=== PATIENT | female | born 1995 | race Caucasian/White ===

== ENCOUNTER 2024-08-10 16:11 | Outpatient (CLI) | payer OTHER, SELFPAY ==
[2024-08-10 17:03] LABS: Hematocrit 33.1 % (37.0-47.0); Hemoglobin 11.5 g/dL (12.0-15.0); Mean Corpuscular HGB Conc 34.7 g/dl (32-36); Mean Corpuscular Hemoglobin 32.3 pg (26-34); Mean Platelet Volume 10.3 fl (7.4-10.4); Platelet Count Result 232 k/mm3 (150-375); Red Blood Count 3.56 M/mm3 (4.2-5.4); Red Cell Distribution Width 12.3 % (11.5-14.5); White Blood Count 8.7 K/mm3 (4.5-10.0)
[2024-08-10 17:53] LABS: HIV 1/2 Ab P24 Ag Result Negative (Negative)
[2024-08-10 18:00] LABS: Hepatitis B Surface Antigen Negative (Negative); Rubella IgG Antibody 58.2 IU/ML
[2024-08-11 15:48] LABS: CMV IgG Antibody <0.60 U/mL
[2024-08-12 11:58] LABS: RPR Screen NON-REACTIVE (NON-REACTIVE)
== END 2024-08-10 16:12 | disposition home or self-care (01) ==
LOC: ANHLAB 16:13
PROVIDERS: Visit Provider Student in an Organized Health Care Education/Training Program
DX: N91.2 Amenorrhea, unspecified (principal)
CPT/HCPCS: 36415; 84702; 85027; 86592; 86644; 86703; 86747; 86762; 86787; 86850; 86900; 86901; 87086; 87340; G0432

== ENCOUNTER 2024-12-23 10:05 | Outpatient (CLI) | payer OTHER, SELFPAY ==
[2024-12-23 11:39] LABS: Hematocrit 33.6 % (37.0-47.0); Hemoglobin 11.3 g/dL (12.0-15.0); Immature Granulocyte Percent A 2.7 % (0-0.5); Lymphocytes Absolute Auto 1.54 K/mm3 (0.9-3.2); Mean Corpuscular HGB Conc 33.6 g/dl (32-36); Mean Corpuscular Hemoglobin 32.4 pg (26-34); Mean Corpuscular Volume 96.3 fl (80-100); Nucleated Red Blood Cells Absolute Auto 0.000 K/mm3 (0.0-0.012); Nucleated Red Blood Cells Perc 0.0 % (0.0-0.2); Platelet Count Result 215 k/mm3 (150-375); Red Blood Count 3.49 M/mm3 (4.2-5.4); White Blood Count 12.0 K/mm3 (4.5-10.0)
[2024-12-23 12:06] LABS: Glucose 1 Hour PP 50gm Dose 65 mg/dL
[2024-12-23 12:47] LABS: HIV 1/2 Ab P24 Ag Result Negative (Negative)
[2024-12-23 13:04] LABS: Syphilis IgG/IgM Antibody Non-Reactive (Nonreactive)
== END 2024-12-23 10:06 | disposition home or self-care (01) ==
PROVIDERS: Visit Provider Obstetrics & Gynecology
DX: Z34.90 Encounter for supervision of normal pregnancy, unspecified, unspecified trimester (principal); Z3A.00 Weeks of gestation of pregnancy not specified
CPT/HCPCS: 36415; 82947; 85025; 86593; 86703; G0432

== ENCOUNTER 2025-01-22 11:18 | Emergency (ER) | payer OTHER, SELFPAY ==
[2025-01-22] VITALS (19 sets, daily range): BP systolic 102–139; BP diastolic 56–85; PULSE 73–89; RESP 12–22; TEMP 36.7; O2SAT 98–100
--- NOTE | 2025-01-22 12:54 | ED_ITS ---
HPI - General Adult General Chief complaint: Shortness of Breath/Dyspnea Stated complaint: SOB Time Seen by Provider: 01/22/25 12:05 History of Present Illness HPI narrative: 29-year-old female that is 34 weeks presents to the emergency department for evaluation for possible panic attacks. Patient denies any anxiety but states he did have some lightheadedness, dizziness, rapid heart rate while resting. Patient states that happened yesterday and happened again today. Patient does report 2 episodes of diarrhea. Patient states she has been drinking fluids but is unsure she has been drinking enough. Patient denies any current abdominal pain, she did have some left lower quadrant cramping and route but denies any current contractions. Patient denies any vaginal bleeding vaginal discharge. Patient denies any falls or injuries. Patient denies any other significant past medical history. As calm appearing at time of evaluation. Related Data Home Medications ?Medication ?Instructions ?Recorded ?Confirmed ?Last Taken ?Type vits no.126-ferrous fum tablet PO 07/20/24 01/12/25 Unknown History 28 mg iron-folic acid 800 mcg tablet (Classic ) Allergies Allergy/AdvReac Type Severity Reaction Status Date / Time No Known Allergies Allergy Verified 01/22/25 11:19 Review of Systems 2 Review of Systems: All systems reviewed & are unremarkable except as noted in HPI and below PMFSH Past Medical History Medical History Surgical History Surgical History H/O knee surgery Family History Family History Grandparent Breast cancer Stomach cancer Cancer of kidney Hypertension Social History Social History Smoking status: Never smoker Alcohol intake: never Substance use: never Substance use type: does not use Current Housing: Decline to Answer Concerned About Future Housing: Decline to Answer Difficulty Paying Gas/Electric Bills: Decline to Answer Difficulty Paying for Meds: Decline to Answer Currently Unemployed: Decline to Answer Education: Decline to Answer Difficulty w/ Childcare or Family Care: Decline to Answer Living arrangements: with family Occupation/Education: occupation Additional occupation/education comments: [employer] Gender identity (if verbalized by the patient): Female Sexual Orientation (if Verbalized by the Patient): Straight or Heterosexual Exam 2 Narrative: APPEARANCE: Well appearing, no pain, no distress, well-nourished. HEAD: normocephalic, atraumatic. EYES: PERRLA/EOMI, conjunctivae clear. NOSE: Normal no drainage EARS:TMS clear with good light reflex. THROAT: Pharynx clear, no exudate. NECK: Supple. No adenopathy, no masses. RESPIRATORY: Airway patent, respirations nonlabored. Clear to auscultation bilaterally, no rales, rhonchi, wheezing. CARDIOVASCULAR: Regular rate and rhythm without murmurs rubs or gallops. ABDOMINAL: Gravid abdomen MUSCULOSKELETAL: Moves all extremities. Strength/ROM intact, No edema, No calf tenderness. NEURO: Alert. Cranial nerves II through XII intact. Good gait. Good coordination SKIN: Warm, dry. Normal Color Course Vital Signs Vital signs: Vital Signs Pulse Rate 89 01/22/25 11:27 Respiratory Rate 14 01/22/25 11:27 Blood Pressure 123/80 01/22/25 11:27 Pulse Oximetry 100 01/22/25 11:27 Temperature 98.1 F 01/22/25 11:36 Pulse Rate 77 01/22/25 14:32 Respiratory Rate 12 01/22/25 14:32 Blood Pressure 113/61 01/22/25 14:31 Pulse Oximetry 98 01/22/25 14:32 Oxygen Delivery Room Air 01/22/25 11:40 Medical Decision Making [facility] Narrative Medical decision making narrative: 29-year-old female presenting to the emergency department for evaluation for lightheaded dizziness. Patient is currently afebrile but does have a leukocytosis of 12.4 which is normal for . Hemoglobin of 10.7. No acute abnormalities on her CMP was normal kidney function. No evidence of urinary tract infection. Patient was treated with a L of lactated Ringer's and does feel improved. Monitoring was performed by [facility] Gyne nursing and tracing is within normal limits. EKG shows normal sinus rhythm. Patient was not orthostatic positive. Patient family were updated the results of workup patient was encouraged to drink plenty of fluid. All questions concerns were addressed patient was well- appearing at time of discharge. Differential Diagnosis Differential Diagnosis: Dehydration, vertigo, electrolyte abnormality, panic attack, anxiety, heart palpitation Vital Signs Vital Signs: Vital Signs Pulse Rate 89 01/22/25 11:27 Respiratory Rate 14 01/22/25 11:27 Blood Pressure 123/80 01/22/25 11:27 Pulse Oximetry 100 01/22/25 11:27 Temperature 98.1 F 01/22/25 11:36 Pulse Rate 77 01/22/25 14:32 Respiratory Rate 12 01/22/25 14:32 Blood Pressure 113/61 01/22/25 14:31 Pulse Oximetry 98 01/22/25 14:32 Oxygen Delivery Room Air 01/22/25 11:40 Lab Data 01/22/25 12:47 01/22/25 12:47 Labs: Lab Results 01/22/25 Range/Units 12:47 WBC 12.4 H (4.5-10.0) K/mm3 RBC 3.24 L (4.2-5.4) M/mm3 Hgb 10.6 L (12.0-15.0) g/dL Hct 31.4 L (37.0-47.0) % MCV 96.9 (80-100) fl MCH 32.7 (26-34) pg MCHC 33.8 (32-36) g/dl RDW 13.0 (11.5-14.5) % Plt Count 169 (150-375) k/mm3 MPV 10.3 (7.4-10.4) fl Immature Gran % (Auto) 4.5 H (0-0.5) % Neut % (Auto) 76.2 H (45.5-73.1) % Lymph % (Auto) 13.4 L (18.3-44.2) % [place] % (Auto) 4.4 (2.6-8.5) % Eos % (Auto) 1.1 (0-4.4) % Baso % (Auto) 0.4 (0.2-1.2) % Lymph # (Auto) 1.65 (0.9-3.2) K/mm3 [place] # (Auto) 0.5 (0.1-0.6) K/mm3 Eos # (Auto) 0.1 (0-0.3) K/mm3 Baso # (Auto) 0.1 (0.0-0.1) K/mm3 Abs Immat Gran (auto) 0.56 H (0.00-0.031) K/mm3 Absolute Neuts (auto) 9.4 H (1.3-6.7) K/mm3 Absolute Nucleated RBC 0.000 (0.0-0.012) K/mm3 Nucleated RBC % 0.0 (0.0-0.2) % Sodium 136 L (137-145) mmol/L Potassium 3.7 (3.4-5.0) mmol/L Chloride 109 H (98-107) mmol/L Carbon Dioxide 23 (22-30) mmol/L Anion Gap 4 (4-12) mmol/L BUN 4 L (7-17) mg/dL Creatinine 0.56 L (0.7-1.0) mg/dL Estim Creat Clear Calc 123 ml/min Estimated GFR > 60 (59 - ) Glucose 79 (65-110) mg/dL Calcium 8.8 (8.4-10.2) mg/dL Total Bilirubin 0.3 (0.2-1.3) mg/dL AST 25 (14-36) U/L ALT 17 (6-35) U/L Alkaline Phosphatase 91 (38-126) U/L Total Protein 6.3 (6.3-8.2) g/dL Albumin 3.4 L (3.5-5.1) g/dL Urine Color Yellow (Yellow) Urine Appearance Clear (Clear) Urine pH 7.0 (5.0-9.0) Ur Specific [place] 1.005 (1.001-1.035) Urine Protein Negative (Negative) mg/dL Urine Glucose (UA) Negative (Negative) mg/dL Urine Ketones Negative (Negative) mg/dL Ur Blood (Man) Negative (Negative) Urine Nitrate Negative (Negative) Urine Bilirubin Negative (Negative) Urine Urobilinogen 0.2 (<2.0) mg/dL Leukocyte Esterase Rfl Negative (Negative) MARIA DOLORES/UL Discharge Plan Discharge Clinical Impression: Dizziness, Light-headed, Heart palpitations Patient Disposition: Home Condition: Stable Instructions: Antibiotic Form, Dehydration (DC) Additional Instructions: Drink plenty of fluids. Continue to have close follow-up with OB [facility]. If you have any worsening symptoms then please call or return to the emergency department. Patient Language: Bulgarian Prescriptions: No Action Classic 28 mg iron- 800 mcg tablet PO Follow-up/Referrals: PHYSICIAN,CARTOGRAPHY SUPERVISOR [Primary Care Provider] -
[2025-01-22 12:59] LABS: Hematocrit 31.4 % (37.0-47.0); Hemoglobin 10.6 g/dL (12.0-15.0); Immature Granulocyte Percent A 4.5 % (0-0.5); Lymphocytes Absolute Auto 1.65 K/mm3 (0.9-3.2); Mean Corpuscular HGB Conc 33.8 g/dl (32-36); Mean Corpuscular Hemoglobin 32.7 pg (26-34); Mean Corpuscular Volume 96.9 fl (80-100); Nucleated Red Blood Cells Absolute Auto 0.000 K/mm3 (0.0-0.012); Nucleated Red Blood Cells Perc 0.0 % (0.0-0.2); Platelet Count Result 169 k/mm3 (150-375); Red Blood Count 3.24 M/mm3 (4.2-5.4); White Blood Count 12.4 K/mm3 (4.5-10.0)
[2025-01-22 13:00] LABS: Add Urine Microscopic? NO; Appearance Urine Clear (Clear); Glucose Urine UA Negative (Negative); Leukocyte Esterase Ur Negative LEU/UL (Negative); Nitrate Urine Negative (Negative); Specific Grav Ur 1.005 (1.001-1.035)
[2025-01-22 13:20] LABS: Alanine Aminotransferase 17 U/L (6-35); Albumin Level 3.4 g/dL (3.5-5.1); Alkaline Phosphatase 91 U/L (38-126); Anion Gap 4 mmol/L (4-12); Aspartate Amino Transferase 25 U/L (14-36); Bilirubin,Total 0.3 mg/dL (0.2-1.3); Blood Urea Nitrogen 4 mg/dL (7-17); Calcium 8.8 mg/dL (8.4-10.2); Carbon Dioxide 23 mmol/L (22-30); Chloride 109 mmol/L (98-107); Estimated CRCL calculation 123 ml/min; Estimated Glomerular Filt Rate > 60; Glucose 79 mg/dL (65-110); Potassium 3.7 mmol/L (3.4-5.0); Sodium 136 mmol/L (137-145); Total Protein 6.3 g/dL (6.3-8.2)
[2025-01-22] MEDS: LACTATED RINGERS 1,000 ML 999 ML IV CONT (13:30)
--- NOTE | 2025-01-22 14:02 | ECG_ITS ---
Test Date: 2025-01-22 14:18:10 Measurements Intervals [place] Rate: 82 P: 12 [place]: 153 QRS: 250 QRSD: 81 T: 17 QT: 356 QTc: 418 Interpretive Statements SINUS RHYTHM ANTEROSEPTAL INFARCT, AGE INDETERMINATE ABNORMAL ECG No previous ECG available for comparison Electronically Signed On 01-22-2025 15:07:05 CDT by Chato South D.O.
== END 2025-01-22 14:45 | disposition home or self-care (01) ==
PROVIDERS: Emergency Provider Emergency Medicine
DX: R42 Dizziness and giddiness (principal); R00.2 Palpitations
CPT/HCPCS: 36415; 80053; 81003; 85025; 93005; 96360; 99283; J7120

== ENCOUNTER 2025-03-16 16:52 | Inpatient (IN) | payer OTHER, SELFPAY ==
[2025-03-16] VITALS (75 sets, daily range): BP systolic 110–124; BP diastolic 61–77; PULSE 61–94; RESP 17–21; TEMP 37–37.4; O2SAT 95–100
[2025-03-16 18:08] LABS: Hematocrit 33.2 % (37.0-47.0); Hemoglobin 11.4 g/dL (12.0-15.0); Immature Granulocyte Percent A 1.3 % (0-0.5); Lymphocytes Absolute Auto 1.68 K/mm3 (0.9-3.2); Mean Corpuscular HGB Conc 34.3 g/dl (32-36); Mean Corpuscular Hemoglobin 32.5 pg (26-34); Mean Corpuscular Volume 94.6 fl (80-100); Nucleated Red Blood Cells Absolute Auto 0.000 K/mm3 (0.0-0.012); Nucleated Red Blood Cells Perc 0.0 % (0.0-0.2); Platelet Count Result 193 k/mm3 (150-375); Red Blood Count 3.51 M/mm3 (4.2-5.4); White Blood Count 10.0 K/mm3 (4.5-10.0)
--- NOTE | 2025-03-16 18:39 | WPDANESEPP ---
Anes - Eval Pre Procedure Procedure: Labor epidural Date/Time: 03/16/25 18:39 Surgeon: Juvencio Preop Diagnosis: Abdominal pain with contractions Pre Op Diagnosis: IOL Patient Data Age: 29 Gender: F Height: Weight: Last Vital Signs Pulse 69 03/16/25 18:01 BP 115/61 03/16/25 18:01 Allergies Allergy/AdvReac Type Severity Reaction Status Date / Time No Known Allergies Allergy Verified 03/09/25 16:30 Home Medications ?Medication ?Instructions ?Recorded ?Confirmed ?Type vits no.126-ferrous fum tablet PO 07/20/24 03/09/25 History 28 mg iron-folic acid 800 mcg tablet (Classic ) RSV vac, preF A and preF B(PF) 120 0.5 ml IM ONCE #1 ea 02/08/25 03/09/25 Rx mcg/0.5 mL IM solution (Abrysvo (PF)) Laboratory Tests 03/16/25 18:00 WBC 10.0 K/mm3 (4.5-10.0) RBC 3.51 L M/mm3 (4.2-5.4) Hgb 11.4 L g/dL (12.0-15.0) Hct 33.2 L % (37.0-47.0) MCV 94.6 fl (80-100) MCH 32.5 pg (26-34) MCHC 34.3 g/dl (32-36) RDW 12.9 % (11.5-14.5) Plt Count 193 k/mm3 (150-375) MPV 11.5 H fl (7.4-10.4) Immature Gran % (Auto) 1.3 H % (0-0.5) Neut % (Auto) 74.2 H % (45.5-73.1) Lymph % (Auto) 16.7 L % (18.3-44.2) [place] % (Auto) 5.8 % (2.6-8.5) Eos % (Auto) 1.5 % (0-4.4) Baso % (Auto) 0.5 % (0.2-1.2) Lymph # (Auto) 1.68 K/mm3 (0.9-3.2) [place] # (Auto) 0.6 K/mm3 (0.1-0.6) Eos # (Auto) 0.2 K/mm3 (0-0.3) Baso # (Auto) 0.1 K/mm3 (0.0-0.1) Abs Immat Gran (auto) 0.13 H K/mm3 (0.00-0.031) Absolute Neuts (auto) 7.5 H K/mm3 (1.3-6.7) Absolute Nucleated RBC 0.000 K/mm3 (0.0-0.012) Nucleated RBC % 0.0 % (0.0-0.2) Blood Type Pending Antibody Screen Pending : gestational age HCG: positive Patient hx anesthesia problems: none Family hx anesthesia problems: none Results Review: All pre-operative results and documents have been reviewed as part of the pre-operative evaluation. [facility] Past Medical History Medical History Overweight (BMI 25.0-29.9) Surgical History Surgical History H/O knee surgery Family History Family History Grandparent Breast cancer Stomach cancer Cancer of kidney Hypertension Social History Social History Smoking status: Never smoker Alcohol intake: never Substance use: never Substance use type: does not use Current Housing: Decline to Answer Concerned About Future Housing: Decline to Answer Difficulty Paying Gas/Electric Bills: Decline to Answer Difficulty Paying for Meds: Decline to Answer Currently Unemployed: Decline to Answer Education: Decline to Answer Difficulty w/ Childcare or Family Care: Decline to Answer Living arrangements: with family Occupation/Education: occupation Additional occupation/education comments: [employer] Gender identity (if verbalized by the patient): Female Sexual Orientation (if Verbalized by the Patient): Straight or Heterosexual Spiritual care concerns: No Exam Day of Procedure 03/16/25 18:39 Patient weight: overweight Heart: regular rate and rhythm Airway: Mallampati scale class II
[2025-03-16 18:48] LABS: Syphilis IgG/IgM Antibody Non-Reactive (Nonreactive)
[2025-03-16] MEDS: DINOPROSTONE 10 MG VAG INSERT VAGINAL (19:17)
[2025-03-16] MEDS: LACTATED RINGERS 1,000 ML 125 ML IV CONT (22:21)
[2025-03-16] MEDS: OXYTOCIN 30 UNITS/NS 500 ML 30 UNITS/500 ML BAG IV CONT (22:22)
[2025-03-17] VITALS (143 sets, daily range): BP systolic 103–179; BP diastolic 49–140; PULSE 43–90; RESP 13–20; TEMP 36.2–37.3; O2SAT 85–100
--- NOTE | 2025-03-17 02:27 | LDADM ---
This patient, Sheryl Liu, was admitted to Labor/Delivery/Recovery 109 on 03/16/25 at 16:52. Plans for labor, pain management and were discussed with patient. Patient/family oriented to hospital policies and general routines including ID bracelet, bed and alarms, visiting hours, pain management, procedures, bathroom and other care routines, personal items, smoking policy, room service/diet and guest tray routines, infant security routines, and visiting hours. Patient/Family are encouraged to report perceived risks to care and to ask questions if they do not understand what they are told or what they should do. See OBIX for further documentation.
[2025-03-17] MEDS: ACETAMINOPHEN 500 MG TABLET 1000 MG PO ×2 (05:21→16:52)
[2025-03-17] MEDS: ONDANSETRON INJ 4 MG/2 ML VIAL IV PUSH ×2 (06:28→12:32)
[2025-03-17] MEDS: FAMOTIDINE 20 MG/2 ML VIAL IV PUSH (06:29)
[2025-03-17] MEDS: LACTATED RINGERS 1,000 ML 125 ML IV CONT (06:30)
--- NOTE | 2025-03-17 06:37 | PM.IMHP ---
H&P: HPI History of Present Illness Date/Time: 03/17/25 06:37 Chief Complaint: Induction of labor Narrative: Sheryl is a 29yo @ 41.0wks who presented overnight for induction of labor. She has had regular care, uncomplicated. She reports good movement. No VB or LOF. Her induction was started with cervidil, but within an hour after placement, she had a 4 min prolonged decel. After return to baseline with category 1 tracing, low dose pitocin at 2mu was started and she had late decelerations. The pitocin was stopped again after return to baseline/category 1 tracing for an hour, pitocin was restarted at 2mu and late decelerations were once again noted. All augmentation was stopped but she has continued to have intermittent late decelerations with random contractions. Review of Systems Constitutional: Constitutional: Denies chills, Denies fever(s) and Denies headache(s) Eyes: Eyes: Denies change in vision ENT: Denies headache(s) Cardiovascular: Cardiovascular: Denies chest pain and Denies dyspnea Respiratory: Respiratory: Denies dyspnea Genitourinary: Genitourinary: Denies abnormal vaginal bleeding and Denies vaginal discharge Neurologic: Denies headache(s) Psychiatric: Psychiatric: Denies anxiety and Denies depression [facility] Past Medical History Medical History Overweight (BMI 25.0-29.9) Surgical History Surgical History H/O knee surgery Family History Family History Grandparent Breast cancer Stomach cancer Cancer of kidney Hypertension Social History Social History Smoking status: Never smoker Second hand tobacco smoke exposure: No Alcohol intake: never Substance use: never Substance use type: does not use Lack of Transportation: No Lack of Food: Never True Current Housing: I Have Housing Concerned About Future Housing: No Difficulty Paying Gas/Electric Bills: No Difficulty Paying for Meds: No Currently Unemployed: No Education: Bachelor's Degree Difficulty w/ Childcare or Family Care: No Living arrangements: with family Occupation/Education: occupation Additional occupation/education comments: [employer] Gender identity (if verbalized by the patient): Female Sexual Orientation (if Verbalized by the Patient): Straight or Heterosexual Spiritual care concerns: No Meds Home Medications and Allergies Home Medications ?Medication ?Instructions ?Recorded ?Confirmed ?Type vits no.126-ferrous fum tablet PO 07/20/24 03/09/25 History 28 mg iron-folic acid 800 mcg tablet (Classic ) RSV vac, preF A and preF B(PF) 120 0.5 ml IM ONCE #1 ea 02/08/25 03/09/25 Rx mcg/0.5 mL IM solution (Abrysvo (PF)) Allergies Allergy/AdvReac Type Severity Reaction Status Date / Time No Known Allergies Allergy Verified 03/09/25 16:30 Exam Const: General: cooperative, healthy appearing, comfortable and no acute distress Orientation/consciousness: patient oriented x3 Resp: Effort & Inspection: normal respiratory effort Cardio: Rate: regular rate GI: GI Palp: No abdominal tenderness : Other: FHT's: 130's/ mod dusty/ + accels/ prolonged decels x4 min w/ return to baseline then with intermittent late decels overnight - cat 2 TOCO: irritability Cervix: 0.5/50/-3 Membranes: intact Presentation: cephalic Skin: General skin exam: normal color Neuro: General: patient oriented x3 Extrem: General: normal to inspection Psych: Appearance: grossly normal Affect: normal affect Attitude: cooperative Assessment and Plan Assessment and plan (1) Encounter for induction of labor: Code(s): Z34.90 - Encounter for supervision of normal , unspecified, unspecified trimester Status: Acute (2) heart deceleration: Status: Acute Plan - Admitted overnight for induction of labor; risks and benefits discussed - Cervidil placed but then was removed after ~1hr due to decel x 4min to 90s, pitocin held twice due to late decels - Continuous monitoring overnight and has continued to have intermittent late decelerations - due to inability to augment and remote from delivery, recommending we proceed with primary low transverse section - GBS neg - Anesthesia consult PRN pain
--- NOTE | 2025-03-17 06:45 | WPDHPUPDATE1 ---
History and Physical Update Update Date/Time: 03/17/25 06:45 History and Physical has been reviewed, including an updated exam of the patient. There are NO changes in the patient's condition. Risks, benefits, and alternatives have been discussed and questions answered. Patient agrees to proceed with procedure.
[2025-03-17] MEDS: ceFAZolin 2 GM in SODIUM CHLORIDE 0.9% IV 50 ML 100 ML IVPB (07:02)
--- NOTE | 2025-03-17 07:04 | W.PM.OBCSD ---
OB - Delivery Note Procedure Delivery date: 03/17/25 Pre-op diagnosis: Failed Induction of Labor and Decelerations Post-op Diagnosis: Same Induction method: Per Cervidil Protocol Delivery augmentation: Pitocin Delivery monitor: External FHT and External Uterine Prior to decision for section, ACOG/SM labor guidelines were considered and discussed with the patient and staff. Decision made to proceed with the section.: Yes Procedure Performed: Primary Primary branch: low cervical, transverse Surgeon: Ania Henning MD Anesthesia type: Spinal Description of Procedure/Findings: Male , cephalic, ROT, nuchal x1 reduced, clear fluid. Normal ovaries and tubes bilaterally. Good hemostasis at end of case. Specimen: Yes (placenta) Estimated Blood Loss: 175 Urine Output: 25 Pathology: Yes (placenta) Complications: No immediate complications Condition: Stable Disposition: Floor Baby Date of : 03/17/25 Time of : 07:30 Gestational Age by Date: 41 (.0) gender: Male Weight (pounds): 8 Weight (ounces): 7 presentation: vertex position: Right Occiput Transverse Placenta delivery description: Expressed Cord Vessel Description: 3 Vessels, Nuchal Cord, Reduced and Delayed Cord Clamping score one minute: 7 score five minutes: 9 Narrative: Sheryl was counseled on all risks and benefits in detail. She was taken to the operating room where spinal epidural was placed. She was then prepped and draped in the normal sterile fashion. She received 2g Ancef and a time out was performed. A Pfannenstiel incision was made in the skin and carried down to the underlying fascia. The fascia was nicked on either side of the midline and the fascial incision was extended laterally and superiorly using curved Ryan scissors. The fascia was then elevated using Vandana clamps and the underlying rectus muscles were dissected off the fascia, superiorly and inferiorly. The rectus muscles were then in the midline and the peritoneum was entered bluntly. Once adequate exposure was obtained, a Mobius self retractor was placed within the abdomen. A bladder flap was created. A low transverse incision was made on the lower uterine segment and clear fluid was noted. The occiput was brought to the hysterotomy and the head was easily delivered. Nuchal cord x1 was noted, but loose and easily reduced. The shoulders and body then followed without complications. The had spontaneous cry and the mouth and nose were bulb suctioned. Delayed cord clamping was performed, the cord was then doubly clamped and cut and the infant was handed off to the awaiting pediatric nurse. A segment of the cord was collected for cord gases. The remaining cord blood was collected for typing. With pitocin infusing, the placenta delivered with gentle traction on the cord without complications. The uterus was then cleared out of all clots and debris using a clean, moist lap. The hysterotomy was then repaired in a running, interlocking fashion using 0 Vicryl. A second layer imbricating suture was then made using 0 Vicryl. A figure of eight stitch placed at the right apex of the hysterotomy was placed and it was then found to be hemostatic and good uterine tone was noted. The bilateral adnexa were examined and found to be normal. The pelvis was cleared of all clots and fluid. The Mobius retractor was removed from the abdomen. The peritoneum, muscle, and fascia were examined and made hemostatic with bovie cautery. The fascia was then repaired using a 0 Vicryl suture in a running fashion. The subcutaneous tissue was then irrigated and made hemostatic with bovie cautery. The skin was then closed using 4-0 Monocryl in a running subcuticular fashion. Sponge, lap, needle and instrument counts were correct at the end of the procedure x2. The patient tolerated the procedure well and was taken to recovery in a stable condition.
[2025-03-17] MEDS: OXYTOCIN 30 UNITS/NS 500 ML 30 UNITS/500 ML BAG 125 UNITS IV CONT (08:18)
--- NOTE | 2025-03-17 08:38 | S_PTH ---
PATIENT: Sheryl Liu LOC: [facility] U#:[id number] AGE/SX: 29/F ROOM: 290 RE03/16/[address]: Ania Henning MD : [id number] BED: 00 DIS: 03/20/2025 SPEC #: [id number] RECD: 03/17/25 11:31 STATUS: JESU REQ #: [id number] OTMA: 03/17/25 08:[address]: Ania Henning DEPT: [facility] Surgical RECD BY: Yanira Riley ENTERED: 03/17/25 11:32 SP TYPE: Surgical OTHR DR: UNKNOWN,DOCTOR Tissues: A - Placenta Procedures: Hematoxylin and Eosin Stain Gross and Microscopic Level 5
[2025-03-17] MEDS: LORATADINE 10 MG TABLET PO (08:49)
--- NOTE | 2025-03-17 09:32 | PC.NURSE ---
Incorrect QBL documented initially. Documentation corrected.
--- NOTE | 2025-03-17 10:30 | PC.NURSE ---
Patient transferred to post room #290 via 1030. Support person present. Oriented to unit, room, information board, rooming in, admission packet and security measures. Patient verbalizes understanding.
[2025-03-17] MEDS: KETOROLAC 15 MG/ML VIAL (*BKC) IV PUSH ×2 (12:34→18:35)
[2025-03-17] MEDS: DEXTROSE 5%/0.45% SOD CHL 1,000 ML 125 ML IV CONT (12:37)
--- NOTE | 2025-03-17 13:14 | PC.NURSE ---
0845: Called to Labor and Delivery to assist mother with first initial feeding. Nursery RN states that mother has flat nipples that are slightly inverted so a nipple shield may be used. Introductions were made, placed in the football position. When placed to the breast, would not maintain latch. Infant would chomp at the breast and push away. Attempted feeding for ~15 minutes. Advised parents to do skin to skin and attempt feeding once infant began to show feeding cues. placed skin to skin with FOB. 0945: Called back to Labor and Delivery to assist with latching infant. Mother states that infant is showing feeding cues. Several attempts were made putting to breast without a nipple shield. However, was unable to maintain latch. A nipple shield was given to assist with feeding. Education on proper usage and cleaning was given. The nipple shield was placed on the right breast and infant was able to latch successfully without pain to the mother. When came unlatched briefly, colostrum was noted to have filled the nipple shield. remains on the breast for feeding. Primary RN notified.
--- NOTE | 2025-03-17 16:33 | PC.NURSE ---
1445: Called to patient bedside to assist with latching infant. Upon entering room, was being held by mother. Mother was able to place infant in cross cradle position with minimal assistance. Mother did have to use the nipple shield to assist with this feeding. was able to maintain latch without pain to mother.
[2025-03-17] MEDS: SIMETHICONE 80 MG TAB.CHEW PO (16:52)
[2025-03-17] MEDS: KCL 20 MEQ/D5/0.45% SOD CHL 1,000 ML 125 ML IV CONT (18:00)
[2025-03-17] MEDS: LIDOCAINE 5% PATCH 1 PATCH TRANSDERM (18:47)
[2025-03-18] MEDS: ACETAMINOPHEN 500 MG TABLET 1000 MG PO ×4 (00:19→18:45)
[2025-03-18] MEDS: KETOROLAC 15 MG/ML VIAL (*BKC) IV PUSH (00:19)
[2025-03-18 00:30] VITALS: BP 105/73; PULSE 80; RESP 14; TEMP 37.2; O2SAT 100
[2025-03-18 05:02] VITALS: BP 94/57; PULSE 69; RESP 14; TEMP 37.2; O2SAT 100
[2025-03-18 05:21] LABS: Hematocrit 26.6 % (37.0-47.0); Hemoglobin 8.7 g/dL (12.0-15.0); Immature Granulocyte Percent A 1.1 % (0-0.5); Lymphocytes Absolute Auto 1.31 K/mm3 (0.9-3.2); Mean Corpuscular HGB Conc 32.7 g/dl (32-36); Mean Corpuscular Hemoglobin 33.0 pg (26-34); Mean Corpuscular Volume 100.8 fl (80-100); Nucleated Red Blood Cells Absolute Auto 0.000 K/mm3 (0.0-0.012); Nucleated Red Blood Cells Perc 0.0 % (0.0-0.2); Platelet Count Result 153 k/mm3 (150-375); Red Blood Count 2.64 M/mm3 (4.2-5.4); White Blood Count 12.3 K/mm3 (4.5-10.0)
[2025-03-18] MEDS: SIMETHICONE 80 MG TAB.CHEW PO ×3 (07:02→15:58)
[2025-03-18] MEDS: DOCUSATE SODIUM 100 MG CAPSULE PO ×2 (07:02→15:58)
[2025-03-18] MEDS: IBUPROFEN 600 MG TABLET PO ×3 (07:03→18:45)
[2025-03-18] MEDS: MULTIVIT/MIN/PREN/FOL AC/IRON TABLET 1 TAB PO (07:03)
--- NOTE | 2025-03-18 07:14 | P.PNOB_ITS ---
OB - PN: Subj Subjective Date/time seen: 03/18/25 07:14 Narrative: POD#1 Sheryl reports doing well today. Her bleeding is blue leather setter. Her pain is controlled. She is tolerating regular diet, passing gas. She has stood up; has not ambulated much. Haskins was removed this AM, has not voided yet. She denies any issues with her incision. She is breast feeding. She would like her son circumcised. OB - PN: Obj Data Labs 03/18/25 04:30 Labs: Laboratory Results - last 24 hr 03/18/25 04:30 WBC 12.3 H RBC 2.64 L Hgb 8.7 L Hct 26.6 L MCV 100.8 H D MCH 33.0 MCHC 32.7 RDW 13.4 Plt Count 153 MPV 11.4 H Immature Gran % (Auto) 1.1 H Neut % (Auto) 82.6 H Lymph % (Auto) 10.7 L [place] % (Auto) 4.6 Eos % (Auto) 0.7 Baso % (Auto) 0.3 Lymph # (Auto) 1.31 [place] # (Auto) 0.6 Eos # (Auto) 0.1 Baso # (Auto) 0.0 Abs Immat Gran (auto) 0.14 H Absolute Neuts (auto) 10.1 H Absolute Nucleated RBC 0.000 Nucleated RBC % 0.0 OB - PN A/P Assessment and Plan (1) S/P section: Code(s): Z98.891 - History of uterine scar from previous surgery Status: Acute Plan day: 1 Plan: routine care Comments: - PO pain meds - Regular diet - Ambulation and hydration encouraged - Continue putting baby to breast q2-3hr - Venofer 500mg IV once, repeat CBC in AM - Plan for circumcision tomorrow Time Spent With Patient Time: Total time spent is greater than 50% in coordination of care (as documented) at patient's floor/unit and/or counseling patient: Review of Systems 2 Constitutional: Constitutional: Denies chills, Denies fever(s) and Denies headache(s) Eyes: Eyes: Denies change in vision ENT: Denies dizziness and Denies headache(s) Cardiovascular: Cardiovascular: Denies chest pain, Denies palpitations and Denies dyspnea Respiratory: Respiratory: Denies cough and Denies dyspnea Gastrointestinal: Gastrointestinal: Denies nausea and Denies vomiting Genitourinary: Comments: normal bleeding Neurologic: Denies dizziness and Denies headache(s) Endocrine: Endocrine: Denies palpitations Exam 2 Const: General: cooperative, comfortable and no acute distress O rientation/consciousness: patient oriented x3 Resp: Effort & Inspection: normal respiratory effort Auscultation: clear to auscultation bilaterally Cardio: Rate: regular rate GI: Inspection: non-distended and incision (covered with clean dressing) GI Palp: Yes abdominal tenderness (appropriate) and Yes Soft to palpation A uscultation: normal bowel sounds : Other: fundus firm Skin: General skin exam: normal color Neuro: General: patient oriented x3 Extrem: General: normal to inspection Psych: Appearance: grossly normal Affect: normal affect Attitude: c ooperative
[2025-03-18 07:45] VITALS: BP 110/60; PULSE 57; RESP 18; TEMP 37; O2SAT 99
[2025-03-18] MEDS: IRON SUCROSE COMPLEX 400 MG, IRON SUCROSE COMPLEX 100 MG in SODIUM CHLORIDE 0.9% IV 250 ML 78.57 MG IVPB (09:18)
--- NOTE | 2025-03-18 11:05 | PC.NURSE ---
Consulted with patient to assess needs related to . Discussed with mother her successes, concerns and any questions she has. We reviewed working with the , supporting breast, protecting her nipples with an optimal deep latch, good positioning, and good hand washing. Encouraged understanding the benefits of skin to skin, responding to feeding cues, frequencies of feeding 8-12 times in 24 hours (approximately 2-3 hours), duration of feedings, milk production, intake/output feeding sheet and signs of adequate intake encouraging swallowing at the breast. Reviewed positioning and alignment, supporting breast, off-centered (asymmetrical latch) and leading with the chin with big, open, wide gape. latched optimally to the [left] breast in [football] position. Education given to the mother of how to visualize the suckling (with good rocking jaw motion) swallows (dropping of the lower jaw) and how to listen for drinking at the breast (the ka sound). The infant was [able] to maintain latch without discomfort to mother, she is currently using a nipple shield to help latch. She has used the shield for a few feedings and is having her parents bring in her breast pump so she can begin pumping to protect her milk supply. With this feeding this [facility] RN was able to see a large amount of colostrum in the shield as infant was feeding. Nipple and shield care reviewed with optimal latch, good positioning and using clean hands when touching her breast. Resources used to facilitate learning were used from the [visual handouts/ tool/mom and baby guide]. Mother voiced understanding of the education shared, to call for assistance if the infant does not latch or if there is discomfort with . Reported to the Primary RN.
--- NOTE | 2025-03-18 14:44 | WPDANLDPN2 ---
Anes-Prog Note L&D Date/Time: 03/18/25 14:44 Comfortable throughout: labor and delivery Neuraxial method: epidural Epidural/Spinal procedure site: clean & non-tender Neuro status: Neuro function grossly intact. Vital Signs: Last Vital Signs Temp 37.0 C 03/18/25 07:45 Pulse 57 L 03/18/25 07:45 Resp 18 03/18/25 07:45 BP 110/60 03/18/25 07:45 Pulse Ox 99 03/18/25 07:45 O2 Del Method Room Air 03/17/25 10:00 Pain score (VAS): 0 I/O: Intake & Output 03/17/25 03/18/25 03/18/25 23:59 07:59 15:59 Intake Total 840 500 Output Total 1400 1350 Balance -560 -850 Patient feedback: Patient satisfied with anesthetic care.
[2025-03-18] MEDS: oxyCODONE HCL (*CRX) 5 MG TAB IR PO (18:45)
[2025-03-18 19:15] VITALS: BP 114/59; PULSE 74; RESP 14; TEMP 37.3; O2SAT 100
[2025-03-19] MEDS: IBUPROFEN 600 MG TABLET PO ×4 (01:00→20:45)
[2025-03-19] MEDS: ACETAMINOPHEN 500 MG TABLET 1000 MG PO ×4 (01:00→20:45)
[2025-03-19 05:06] LABS: Hematocrit 27.0 % (37.0-47.0); Hemoglobin 8.7 g/dL (12.0-15.0); Mean Corpuscular HGB Conc 32.2 g/dl (32-36); Mean Corpuscular Hemoglobin 32.5 pg (26-34); Mean Corpuscular Volume 100.7 fl (80-100); Platelet Count Result 172 k/mm3 (150-375); Red Blood Count 2.68 M/mm3 (4.2-5.4); White Blood Count 11.6 K/mm3 (4.5-10.0)
[2025-03-19] MEDS: SIMETHICONE 80 MG TAB.CHEW PO ×3 (07:30→16:25)
[2025-03-19 08:00] VITALS: BP 113/53; PULSE 55; RESP 16; TEMP 36.9; O2SAT 97
--- NOTE | 2025-03-19 08:45 | PC.NURSE ---
Mother called out for assistance with latching and waking infant. We reviewed working with the infant, supporting breast, protecting her nipples with an optimal deep latch, applying the nipple shield, good positioning, and good hand washing. Encouraged unwrapping and placing him skin to skin to help him wake up before a feeding, responding to feeding cues, frequencies of feeding 8-12 times in 24 hours (approximately 2-3 hours), duration of feedings, milk production, intake/output feeding sheet and signs of adequate intake encouraging swallowing at the breast. Reviewed positioning and alignment, supporting breast, off-centered (asymmetrical latch) and leading with the chin with big, open, wide gape. Infant attempted to latch with the nipple shield to the [right] breast in [football] position but was now too upset to latch, attempted for a few minutes and then mother chose to go ahead and give a bottle of formula and then she was going to use her breast pump. Mother voiced understanding of the education shared, to call for assistance if the does not latch or if there is discomfort with . Reported to the Primary RN.
[2025-03-19] MEDS: MULTIVIT/MIN/PREN/FOL AC/IRON TABLET 1 TAB PO (09:00)
[2025-03-19] MEDS: DOCUSATE SODIUM 100 MG CAPSULE PO ×2 (09:00→16:25)
--- NOTE | 2025-03-19 10:50 | P.PNOB_ITS ---
OB - PN: Subj Subjective Date/time seen: 03/19/25 08:00 Narrative: POD#2 Sheryl reports doing well today. Her bleeding is light. Her pain is controlled. She is tolerating regular diet, voiding, passing gas, and ambulating without issues. She denies any issues with her incision. She is breast feeding. She would like her son circumcised. OB - PN: Obj Data Labs 03/19/25 04:55 Labs: Laboratory Results - last 24 hr 03/18/25 04:30 WBC 12.3 H RBC 2.64 L Hgb 8.7 L Hct 26.6 L MCV 100.8 H D MCH 33.0 MCHC 32.7 RDW 13.4 Plt Count 153 MPV 11.4 H Immature Gran % (Auto) 1.1 H Neut % (Auto) 82.6 H Lymph % (Auto) 10.7 L [place] % (Auto) 4.6 Eos % (Auto) 0.7 Baso % (Auto) 0.3 Lymph # (Auto) 1.31 [place] # (Auto) 0.6 Eos # (Auto) 0.1 Baso # (Auto) 0.0 Abs Immat Gran (auto) 0.14 H Absolute Neuts (auto) 10.1 H Absolute Nucleated RBC 0.000 Nucleated RBC % 0.0 OB - PN A/P Assessment and Plan (1) S/P section: Code(s): Z98.891 - History of uterine scar from previous surgery Status: Acute Plan day: 2 Plan: routine care Comments: - PO pain meds - Regular diet - Ambulation and hydration encouraged - Continue putting baby to breast q2-3hr - Circ performed w/o issue - CBC stable; s/p venofer Time Spent With Patient Time: Total time spent is greater than 50% in coordination of care (as documented) at patient's floor/unit and/or counseling patient: Review of Systems 2 Constitutional: Constitutional: Denies chills, Denies fever(s) and Denies headache(s) Eyes: Eyes: Denies change in vision ENT: Denies dizziness and Denies headache(s) Cardiovascular: Cardiovascular: Denies chest pain, Denies palpitations and Denies dyspnea Respiratory: Respiratory: Denies cough and Denies dyspnea Gastrointestinal: Gastrointestinal: Denies nausea and Denies vomiting Genitourinary: Comments: normal bleeding Neurologic: Denies dizziness and Denies headache(s) Endocrine: Endocrine: Denies palpitations Exam 2 Const: General: cooperative, comfortable and no acute distress O rientation/consciousness: patient oriented x3 Resp: Effort & Inspection: normal respiratory effort Auscultation: clear to auscultation bilaterally Cardio: Rate: regular rate GI: Inspection: non-distended and incision (covered with clean dressing) GI Palp: Yes abdominal tenderness (appropriate) and Yes Soft to palpation A uscultation: normal bowel sounds : Other: fundus firm Skin: General skin exam: normal color Neuro: General: patient oriented x3 Extrem: General: normal to inspection Psych: Appearance: grossly normal Affect: normal affect Attitude: c ooperative
[2025-03-19 20:00] VITALS: BP 124/61; PULSE 68; RESP 16; TEMP 37.1; O2SAT 100
[2025-03-20] MEDS: ACETAMINOPHEN 500 MG TABLET 1000 MG PO ×2 (03:30→09:55)
[2025-03-20] MEDS: IBUPROFEN 600 MG TABLET PO ×2 (03:30→09:55)
[2025-03-20 07:54] VITALS: BP 115/66; PULSE 67; RESP 19; TEMP 36.4; O2SAT 100
--- NOTE | 2025-03-20 07:55 | P.DS_ITS ---
DS: Admitting Diagnosis Discharge Date 03/20/25 Admitting Diagnosis induction of labor DS: Discharge Diagnosis Discharge Diagnosis (1) heart deceleration: Status: Acute (2) S/P section: Code(s): Z98.891 - History of uterine scar from previous surgery Status: Acute OB - DS: Summary OB Procedures : Ultrasound OB Procedures Intrapartum: low cervical, transverse OB Procedures: : Other (venofer 500mg IV once) Peripartum Data Infant Delivery Method: Section Procedures: Procedures Operation Date: 03/17/25 07:00 Actual Procedure Side Surgeon p Section Ania Henning MD complications: none [place] 1: Gender: Male Disposition of : home Status at Discharge Functional status at discharge: independent ambulation Overall status at discharge: patient is back to baseline Time Spent with Patient Time attestation: Total time spent providing and/or coordinating discharge services: Exam Const: General: cooperative, healthy appearing, comfortable and no acute distress Orientation/consciousness: patient oriented x3 Resp: Effort & Inspection: normal respiratory effort Auscultation: clear to auscultation bilaterally Cardio: Rate: regular rate GI: Inspection: non-distended GI Palp: No abdominal tenderness and Yes Soft to palpation Auscultation: normal bowel sounds : Other: fundus firm Skin: General skin exam: normal color Neuro: General: patient oriented x3 Extrem: General: normal to inspection Psych: Appearance: grossly normal Affect: normal affect Attitude: cooperative DS: Data Data Completed and Pending Pending studies at discharge: Pending at discharge 03/17/25 08:38 Surgical [PTH] Routine Labs on day of discharge: Labs from last 24 hours 03/19/25 04:55 WBC 11.6 H RBC 2.68 L Hgb 8.7 L Hct 27.0 L MCV 100.7 H MCH 32.5 MCHC 32.2 RDW 13.6 Plt Count 172 MPV 11.0 H Discharge Plan Discharge Attending physician on discharge: Ania Henning Discharging Clinician: Ania Henning Anticipated Discharge Date/Time: 03/20/25 10:00 Patient Disposition: Home Activity: may shower and pelvic rest Diet: regular Discharge Instructions: Education: Mom and Baby Guide Given to: Mother Follow-Up: Call your delivering provider's office for an appointment to be seen in: 4 Weeks Mom and baby should come to the [facility] for the follow-up appointment. Appointment Date/Time: March 22, 2025 at 11:00 am What to expect at your follow-up visit: Blood Pressure Check Physical Assessment Call [phone] if you are unable to keep your appointment time. BREAST CARE: * Wear a snug supportive bra. * For engorgement discomfort: Breast Feeding: * Apply warm moist washcloths * Express milk as needed to relieve engorgement * Wear loose clothing Bottle Feeding: * May apply ice packs * For sore nipples: * Identify correct latch-on * Apply warm moist washcloths before and after nursing * Air dry nipples after nursing * May apply Lansinoh cream to nipples ABDOMINAL INCISION: (if applicable) * Allow incision to air dry * Do NOT use lotions for powders on your incision * When showering, allow soap and water to run over the incision, but do not wash incision EPISIOTOMY/PERINEAL CARE: * Until bleeding stops, use your garrett bottle after urinating * Change your pad frequently throughout the day * You may take sitz baths several times a day (fill your bathtub with warm water and soak for 20 minutes.) Do NOT bathe in the water * No tub baths until seen by your physician - You may shower ACTIVITY: * Rest as much as possible. * Do not exercise or lift anything heavier than your baby (such as laundry or other children.) * Avoid stairs or driving as much as possible. * Do not put anything into the vagina. No douching, tampons, or sexual activity until seen by physician. NOTIFY PHYSICIAN IF YOU HAVE ANY QUESTIONS OR IF ANY OF THE FOLLOWING SYMPTOMS OCCUR * If your episiotomy or incision becomes red, swollen, or more painful than what you have experienced in the hospital. * If your vaginal bleeding becomes foul smelling. * If your vaginal bleeding becomes more heavy than a period or if your bleeding changes from pink to bright red. However, you may pass an occasional walnut- sized clot once or twice for the first week . * If you experience a sharp, shooting pain in you calves. * If you discover a hard, reddened area on your breast or if you experience flu- like symptoms. DIET: * Eat regular, well-balanced meals. * Drink plenty of fluids daily. If , drink to thirst. No lifting over 15lbs for 6wks showers only; no baths/pools for 6wks Remove incisional dressing on 03/23/25 Patient Instructions: Antibiotic Form Patient Language: Vincentian Stand Alone Forms: General Discharge Information Follow-up/Referrals: Ania Henning MD [Physician, TRANSIT SPECIALIST] - 4 Weeks Discharge Medications: New docusate sodium 100 mg Capsule 100 mg PO BID Qty: 90 0RF ibuprofen 600 mg Tablet 600 mg PO Q6HR Qty: 40 0RF acetaminophen 500 mg Tablet 1,000 mg PO Q6HR Qty: 60 0RF oxycodone 5 mg Tablet 5 mg PO Q4H PRN (Reason: Pain Rated 4-6) Qty: 24 0RF Continued Classic 28 mg iron- 800 mcg tablet PO Discontinued Abrysvo (PF) 120 mcg/0.5 mL recon soln 0.5 ml IM ONCE Qty: 1 0RF Rx Instructions: as a single dose Date of admission: 03/16/25 16:52 Primary Care Provider: UNKNOWN,DOCTOR Admitting Provider: Ania Henning Attending physician on admission: Ania Henning Condition: Stable
--- NOTE | 2025-03-20 09:15 | PC.NURSE ---
Consulted with mother concerning needs and she shared her ability to independently latch infant with the nipple shield. Mother is feeding appropriately for growth of and understands stimulating to eat if needed. She attempts for 15 minutes, then pumps and bottle feeds expressed milk and formula. has had appropriate feedings in the last 24 hours meets the outcomes for weight, output, blood sugar and jaundice at this time. Reinforced understanding of signs of adequate intake (extra feeding sheets provided), transition of stool (handouts given), prevention/relief of engorgement, plugged ducts, mastitis, responsive , community/outpatient resources, and when to call a provider using the resource of the feeding sheet along with the mom and baby guide. She has her own breast pump at home. She knows she can ask for assistance at follow up if needed. Mother voiced understanding of the information shared, is confident to continue effectively her at home, when to call for assistance, denies any additional assistance or education at this time. Reported to the Primary RN.
[2025-03-20] MEDS: SIMETHICONE 80 MG TAB.CHEW PO (09:55)
[2025-03-20] MEDS: MULTIVIT/MIN/PREN/FOL AC/IRON TABLET 1 TAB PO (09:55)
[2025-03-20] MEDS: DOCUSATE SODIUM 100 MG CAPSULE PO (09:55)
[2025-03-22 11:27] VITALS: BP 126/78; PULSE 101; RESP 18; TEMP 36.6; O2SAT 100
== END 2025-03-20 11:48 | disposition home or self-care (01) | DRG 788 ==
LOC: ANHLDR 16:56 → ANHOB2 03-17 11:02
PROVIDERS: Admitting Provider Obstetrics & Gynecology; Visit Provider Obstetrics & Gynecology
PROC: 10D00Z1 Extraction of Products of Conception, Low, Open Approach (ICD-10-PCS; CPT 59514; principal; 2025-03-17 07:00)
DX: O69.81X0 Labor and delivery complicated by cord around neck, without compression, not applicable or unspecified (principal); Z3A.41 41 weeks gestation of pregnancy; Z37.0 Single live birth; O61.9 Failed induction of labor, unspecified; O76 Abnormality in fetal heart rate and rhythm complicating labor and delivery
CPT/HCPCS: 36415; 85025; 85027; 86593; 86850; 86900; 86901; 88307; J0690; A9270; J1756; J1885; J2274; J2405; J2590; J3480; J7050; J7120